=== PATIENT | female | born 1970 | race Caucasian/White ===

== ENCOUNTER 2018-04-27 15:34 | Emergency (ER) | payer OTHER ==
[2018-04-27 15:43] VITALS: BP 133/79
--- NOTE | 2018-04-27 15:47 | EDM.PDOC ---
ED HPI GENERAL MEDICAL PROBLEM - General Stated Complaint: leg pain [id number] Time Seen by Provider: 04/27/18 15:47 Source of Information: Reports: Patient, RN, RN Notes Reviewed History Limitations: Reports: No Limitations - History of Present Illness INITIAL COMMENTS - FREE TEXT/NARRATIVE: Pt to ER with c/o pain to the right great toe. Patient states she was doing yoga when she dropped her foot and hit the floor, injuring her toe. Patient states this happened a few hours ago. Patient states last year she had a screw placed in the right first metatarsal and she is concerned the hardware may be damaged. Onset: Today, Sudden Right Feet Pain Score (Numeric/FACES): 6 - Related Data Allergies Allergy/AdvReac Type Severity Reaction Status Date / Time No Known Allergies Allergy Verified 11/24/14 08:28 Home Meds: Home Meds Amoxicillin [Amoxil] 250 mg pe PO DAILY 11/24/14 [History] Cholecalciferol (Vitamin D3) [Vitamin D3] 2,000 unit PO DAILY 11/24/14 [History] Ciprofloxacin HCl [Cipro] 250 mg PO DAILY 11/24/14 [History] Multivitamin [Xbb-Fkdfsp-Oqnif] 1 tab PO DAILY 11/24/14 [History] Tacrolimus [Prograf] 1 mg PO BID 11/24/14 [History] metroNIDAZOLE [Metronidazole] 250 mg PO TID 11/24/14 [History] Review of Systems - Review of Systems Review Of Systems: ROS reveals no pertinent complaints other than HPI. ED EXAM, GENERAL - Physical Exam Exam: See Below Exam Limited By: No Limitations General Appearance: Alert, WD/WN, Mild Distress Eye Exam: Bilateral Eye: EOMI, Normal Inspection Ears: Normal External Exam, Hearing Grossly Normal Nose: Normal Inspection Throat/Mouth: Normal Inspection, Normal Voice, No Airway Compromise Head: Atraumatic, Normocephalic Neck: Normal Inspection, Supple, Non-Tender, Full Range of Motion Respiratory/Chest: No Respiratory Distress, Lungs Clear, Normal Breath Sounds, No Accessory Muscle Use, Chest Non-Tender Cardiovascular: Normal Peripheral Pulses, Regular Rate, Rhythm, No Edema, No Gallop, No JVD, No Murmur, No Rub Peripheral Pulses: 2+: Dorsalis Pedis (L), Dorsalis Pedis (R) GI/Abdominal: Normal Bowel Sounds, Soft, Non-Tender (Female) Exam: Deferred Rectal (Female) Exam: Deferred Back Exam: Normal Inspection, Full Range of Motion Extremities: Joint Swelling (right great toe), Limited Range of Motion (right great toe), Other Neurological: Alert, Oriented, Normal Cognition, No Motor/Sensory Deficits Psychiatric: Anxious Skin Exam: Warm, Dry, Intact, Normal Color, No Rash, Ecchymosis (right great toe ) Lymphatic: No Adenopathy Course - Vital Signs Last Recorded V/S: Last Vital Signs Temp 97.9 F 04/27/18 15:42 Pulse 66 04/27/18 15:42 Resp 20 04/27/18 15:42 BP 133/79 04/27/18 15:42 Pulse Ox 97 04/27/18 15:42 - Radiology Interpretation Free Text/Narrative:: Right foot xray: IMPRESSION: No acute findings. Thank you for allowing us to participate in the care of your patient. Dictated and Authenticated by: Vanesa Figueroa MD 04/27/2018 4:31 PM Central Time ([place] & [place]) See rad report Departure - Departure Time of Disposition: 16:44 Disposition: Home, Self-Care 01 Condition: Fair Clinical Impression: Sprain of toe, great, right Qualifiers: Encounter type: initial encounter Qualified Code(s): S93.501A - Unspecified sprain of right great toe, initial encounter - Discharge Information *PRESCRIPTION DRUG MONITORING PROGRAM REVIEWED*: No *COPY OF PRESCRIPTION DRUG MONITORING REPORT IN PATIENT PAUL: No Instructions: Muscle Strain, [id number] Referrals: PCP,None [Primary Care Provider] - Forms: ED Department Discharge Additional Instructions: May use Tylenol and/or ibuprofen if tolerated, as directed for pain Ice the area as tolerated Rest and elevate the foot as tolerated Follow up with your primary care facility if no improvement
== END 2018-04-27 17:01 | disposition home or self-care (01) ==
LOC: DL.ED 15:34
DX: S93.501A Unspecified sprain of right great toe, initial encounter (principal); Z79.899 Other long term (current) drug therapy; X50.0XXA Overexertion from strenuous movement or load, initial encounter; Y93.42 Activity, yoga
CPT/HCPCS: 73620-RT; 99283

== ENCOUNTER 2020-04-17 11:55 | Emergency (ER) | payer OTHER ==
[2020-04-17] MEDS ORDERED: Sodium Chloride 0.9% 10 ML Syringe FLUSH PRN (12:19)
[2020-04-17] MEDS ORDERED: Sodium Chloride 0.9% 1,000 ML IV ONE ×2 (12:19→13:13)
[2020-04-17 12:27] VITALS: BP 126/82; PULSE 102
--- NOTE | 2020-04-17 12:30 | EDM.PDOC ---
ED HPI GENERAL MEDICAL PROBLEM - General Chief Complaint: General Stated Complaint: [id number] DEHYDRATION Time Seen by Provider: 04/17/20 12:15 Source of Information: Reports: Patient, Old Records, RN, RN Notes Reviewed History Limitations: Reports: No Limitations - History of Present Illness INITIAL COMMENTS - FREE TEXT/NARRATIVE: Pt presents to ER from home by POV with c/o dizziness and feeling dehydrated. She was at [facility] all last week for f/u and annual exam for being s/p liver transplant. She reports not drinking enough water while at [place] and during travel. She has had similar symptoms in the past with dehydration. Denies syncope, headache, chest pain, palpitations, N/V/D, or dysuria. Duration: Day(s): (3) Location: Reports: Generalized Quality: Reports: Other (Denies pain) Severity: Moderate Improves with: Reports: None Worsens with: Reports: Other (Activity) Associated Symptoms: Reports: No Other Symptoms - Related Data Allergies Allergy/AdvReac Type Severity Reaction Status Date / Time No Known Allergies Allergy Verified 04/17/20 12:09 Home Meds: Home Meds Cholecalciferol (Vitamin D3) [Vitamin D3] 2,000 unit PO DAILY 11/24/14 [History] Ciprofloxacin HCl [Cipro] 250 mg PO DAILY 11/24/14 [History] Multivitamin [Buz-Paxtqx-Dporm] 1 tab PO DAILY 11/24/14 [History] Tacrolimus [Prograf] 4 mg PO BID 11/24/14 [History] metroNIDAZOLE [Metronidazole] 250 mg PO TID 11/24/14 [History] Past Medical History HEENT History: Reports: Impaired Vision Immunologic History: Reports: Immunosuppression, Solid Organ Transplant - Past Surgical History HEENT Surgical History: Reports: Tonsillectomy GI Surgical History: Reports: Cholecystectomy, Colon, Other (See Below) Other GI Surgeries/Procedures: livertransplant Social & Family History - Family History Family Medical History: Noncontributory - Caffeine Use Caffeine Use: Reports: Soda - Living Situation & Occupation Living situation: Reports: with Family ED ROS GENERAL - Review of Systems Review Of Systems: Comprehensive ROS is negative, except as noted in HPI. ED EXAM, DIZZINESS - Physical Exam Exam: See Below Exam Limited By: No Limitations General Appearance: Alert, WD/WN, No Apparent Distress Eye Exam: Bilateral Eye: Normal Inspection Nose: Normal Inspection Throat/Mouth: Normal Inspection, Normal Lips, Normal Voice, No Airway Compromise Head Exam: Atraumatic, Normocephalic Neck: Normal Inspection Respiratory/Chest: No Respiratory Distress, Lungs Clear, Normal Breath Sounds, No Accessory Muscle Use, Chest Non-Tender Cardiovascular: Regular Rate, Rhythm, No Edema, No Gallop, No JVD, No Murmur, No Rub GI/Abdominal: Normal Bowel Sounds, Soft, Non-Tender Neurological: Alert, No Motor/Sensory Deficits, Oriented x 3 Psychiatric: Normal Affect, Normal Mood Skin Exam: Warm, Dry, Intact, Normal Color, No Rash Course - Vital Signs Last Recorded V/S: Last Vital Signs Temp 97.2 F 04/17/20 12:24 Pulse 102 H 04/17/20 12:24 Resp 18 04/17/20 12:24 BP 126/82 04/17/20 12:24 Pulse Ox 100 04/17/20 12:24 Orthostatic Blood Pressure [ 118/69 Standing] Orthostatic Blood Pressure [ 115/85 Sitting] Orthostatic Blood Pressure [ 119/75 Supine] Not orthostatic. - Orders/Labs/Meds Orders: Active Orders 24 hr Category Date Time Status Orthostatic Vital Signs [RC] ASDIRECTED Care 04/17/20 12:09 Active Peripheral IV Care [RC] . DIRECTED Care 04/17/20 12:19 Active Peripheral IV Insertion Adult [OM.PC] Stat Oth 04/17/20 12:19 Ordered Labs: Laboratory Tests 04/17/20 04/17/20 04/17/20 Range/Units 12:20 12:34 12:34 WBC 8.2 (5.0-10.0) 10^3/uL RBC 4.50 (4.2-5.4) 10^6/uL Hgb 14.5 D (12.0-16.0) g/dL Hct 43.6 (37.0-47.0) % MCV 96.9 (80-100) fL MCH 32.2 (27.0-34.0) pg MCHC 33.3 (33.0-35.0) g/dL Plt Count 245 (150-450) 10^3/uL Neut % (Auto) 51.0 (42.2-75.2) % Lymph % (Auto) 35.3 (20.5-50.1) % [place] % (Auto) 11.2 H (2-8) % Eos % (Auto) 2.1 (1.0-3.0) % Baso % (Auto) 0.4 (0.0-1.0) % Sodium 133 L (136-145) mmol/L Potassium 4.2 (3.5-5.1) mmol/L Chloride 100 (98-107) mmol/L Carbon Dioxide 25 (21-32) mmol/L Anion Gap 12.2 (7-13) mEq/L BUN 17 (7-18) mg/dL Creatinine 1.34 H (0.55-1.02) mg/dL Est Cr Clr Drug Dosing 45.97 mL/min Estimated GFR (MDRD) 42 BUN/Creatinine Ratio 12.7 (No establ ref range) Glucose 91 (74-99) mg/dL Calcium 9.4 (8.5-10.1) mg/dL Total Bilirubin 0.5 (0.2-1.0) mg/dL AST 18 (15-37) U/L ALT 30 (14-59) U/L Alkaline Phosphatase 116 (46-116) U/L Total Protein 8.0 (6.4-8.2) g/dL Albumin 3.7 (3.4-5.0) g/dL Globulin 4.3 Albumin/Globulin Ratio 0.9 Urine Color Yellow (YELLOW) Urine Appearance Clear (CLEAR) Urine pH 5.5 (5.0-9.0) Ur Specific [place] <= 1.005 (1.005-1.030) Urine Protein Negative (NEGATIVE) Urine Glucose (UA) Negative (NEGATIVE) Urine Ketones Negative (NEGATIVE) Urine Occult Blood Negative (NEGATIVE) Urine Nitrite Negative (NEGATIVE) Urine Bilirubin Negative (NEGATIVE) Urine Urobilinogen 0.2 (0.2-1.0) mg/dL Ur Leukocyte Esterase Negative (NEGATIVE) Meds: Medications Discontinued Medications Generic Name Dose Route Start Last Admin Trade Name Freq PRN Reason Stop Dose Admin Sodium Chloride 1,000 mls @ 999 mls/hr 04/17/20 12:19 04/17/20 12:39 Normal Saline IV 04/17/20 13:19 999 mls/hr .BOLUS ONE Administration Sodium Chloride 1,000 mls @ 999 mls/hr 04/17/20 13:13 08/08/20 13:39 Normal Saline IV 04/17/20 14:13 999 mls/hr .BOLUS ONE Administration Sodium Chloride 10 ml 04/17/20 12:19 04/17/20 12:39 Saline Flush FLUSH 10 ml ASDIRECTED PRN Administration Keep Vein Open Departure - Departure Time of Disposition: 14:00 Disposition: Home, Self-Care 01 Condition: Good Clinical Impression: Dehydration, Dizziness - Discharge Information *PRESCRIPTION DRUG MONITORING PROGRAM REVIEWED*: Not Applicable *COPY OF PRESCRIPTION DRUG MONITORING REPORT IN PATIENT PAUL: Not Applicable Instructions: Dehydration, Adult, [id number]-[id number], Dizziness, Prxm-[id number] Forms: ED Department Discharge Additional Instructions: Follow up in clinic this week if not completely improved. Sepsis Event Note (ED) - Focused Exam Vital Signs: Vital Signs Temp Pulse Resp BP Pulse Ox 04/17/20 12:24 97.2 F 102 H 18 126/82 100 - My Orders Last 24 Hours: My Active Orders 04/17/20 12:09 Orthostatic Vital Signs [RC] ASDIRECTED 04/17/20 12:19 Peripheral IV Care [RC] . DIRECTED Peripheral IV Insertion Adult [OM.PC] Stat - Assessment/Plan Last 24 Hours: My Active Orders 04/17/20 12:09 Orthostatic Vital Signs [RC] ASDIRECTED 04/17/20 12:19 Peripheral IV Care [RC] . DIRECTED Peripheral IV Insertion Adult [OM.PC] Stat
[2020-04-17 13:00] LABS: ANION GAP 12.2 mEq/L (7-13)
== END 2020-04-17 14:46 | disposition home or self-care (01) ==
LOC: DL.ED 11:55
DX: E86.0 Dehydration (principal); Z94.4 Liver transplant status; Z79.899 Other long term (current) drug therapy
CPT/HCPCS: 36415; 80053; 81003; 85025; 96360; 96361; 99284; J7030; 99283

== ENCOUNTER 2021-04-01 14:56 | Emergency (ER) | payer OTHER | END 2021-04-01 17:19 | disposition left against medical advice (07) | LOC: DL.ED 14:56 | DX: Z53.21 Procedure and treatment not carried out due to patient leaving prior to being seen by health care provider (principal) ==

== ENCOUNTER 2021-04-02 11:32 | Emergency (ER) | payer OTHER ==
[2021-04-02 11:50] VITALS: BP 118/76; PULSE 65
[2021-04-02 12:48] LABS: ANION GAP 13.8 mEq/L (7-13)
[2021-04-02] MEDS ORDERED: Sodium Chloride 0.9% 1,000 ML IV ONE (12:54)
[2021-04-02] MEDS ORDERED: Magnesium Sulfate/Water 2 GM in Premix Bag 1 BAG IV ONE (12:54)
--- NOTE | 2021-04-02 12:59 | EDM.PDOC ---
ED HPI GENERAL MEDICAL PROBLEM - General Chief Complaint: General Stated Complaint: [id number] DEHYDRATION Time Seen by Provider: 04/02/21 12:05 Source of Information: Reports: Patient History Limitations: Reports: No Limitations - History of Present Illness INITIAL COMMENTS - FREE TEXT/NARRATIVE: This 51 yo female patient reports to the ED due to intermittent episodes of dizziness. The patient reports she has noticed symptoms throughout the past 3-4 days. 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 The patient reports she has had numerous bouts of dehydration over the past years with similar symptoms. Onset: Gradual Duration: Day(s): Location: Reports: Other Quality: Reports: Other Severity: Mild Improves with: Reports: None Worsens with: Reports: None Context: Reports: Other Associated Symptoms: Reports: No Other Symptoms - Related Data Allergies Allergy/AdvReac Type Severity Reaction Status Date / Time No Known Allergies Allergy Verified 04/02/21 11:50 Home Meds: Home Meds Cholecalciferol (Vitamin D3) [Vitamin D3] 2,000 unit PO DAILY 11/24/14 [History] Ciprofloxacin HCl [Cipro] 250 mg PO DAILY 11/24/14 [History] Multivitamin with Folic Acid [Multiple Vitamin Tablet] 1 tab PO DAILY 11/24/14 [History] Tacrolimus [Prograf] 4 mg PO BID 11/24/14 [History] metroNIDAZOLE [Metronidazole] 250 mg PO TID 11/24/14 [History] Past Medical History HEENT History: Reports: Impaired Vision Other HEENT History: wears glasses Cardiovascular History: Reports: None Respiratory History: Reports: None Genitourinary History: Reports: Other (See Below) Other Genitourinary History: "poor renal function due to liver transplant [employer]IED [employer] History: Reports: None Musculoskeletal History: Reports: None Neurological History: Reports: None Psychiatric History: Reports: None Endocrine/Metabolic History: Reports: Obesity/BMI 30+ Hematologic History: Reports: None Immunologic History: Reports: Immunosuppression, Solid Organ Transplant Oncologic (Cancer) History: Reports: None Dermatologic History: Reports: None - Infectious Disease History Infectious Disease History: Reports: Chicken Pox - Past Surgical History Head Surgeries/Procedures: Reports: None HEENT Surgical History: Reports: Tonsillectomy GI Surgical History: Reports: Cholecystectomy, Colon, Other (See Below) Other GI Surgeries/Procedures: livertransplant Social & Family History - Family History Family Medical History: No Pertinent Family History - Tobacco Use Tobacco Use Status *Q: Never Tobacco User Second Hand Smoke Exposure: No - Caffeine Use Caffeine Use: Reports: Soda - Recreational Drug Use Recreational Drug Use: No - Living Situation & Occupation Living situation: Reports: with Family ED ROS GENERAL - Review of Systems Review Of Systems: Comprehensive ROS is negative, except as noted in HPI. ED EXAM, GENERAL - Physical Exam Exam: See Below Exam Limited By: No Limitations General Appearance: Alert, WD/WN, No Apparent Distress Eye Exam: Bilateral Eye: EOMI, Normal Inspection, PERRL Ears: Normal External Exam, Normal Canal, Hearing Grossly Normal, Normal TMs Nose: Normal Inspection, Normal Mucosa, No Blood Throat/Mouth: Normal Inspection, Normal Lips, Normal Teeth, Normal Gums, Normal Oropharynx, Normal Voice, No Airway Compromise Head: Atraumatic, Normocephalic Neck: Normal Inspection, Supple, Non-Tender, Full Range of Motion Respiratory/Chest: No Respiratory Distress, Lungs Clear, Normal Breath Sounds, No Accessory Muscle Use, Chest Non-Tender Cardiovascular: Normal Peripheral Pulses, Regular Rate, Rhythm, No Edema, No Gallop, No JVD, No Murmur, No Rub GI/Abdominal: Normal Bowel Sounds, Soft, Non-Tender, No Organomegaly, No Disten tion, No Abnormal Bruit, No Mass (Female) Exam: Deferred Rectal (Female) Exam: Deferred Back Exam: Normal Inspection, Full Range of Motion, NT Extremities: Normal Inspection, Normal Range of Motion, Non-Tender, Normal Capillary Refill, No Pedal Edema Neurological: Alert, Oriented, CN II-XII Intact, Normal Cognition, Normal Gait, Normal Reflexes, No Motor/Sensory Deficits Psychiatric: Normal Affect, Normal Mood Skin Exam: Warm, Dry, Intact, Normal Color, No Rash Lymphatic: No Adenopathy Course - Vital Signs Last Recorded V/S: Last Vital Signs Temp 97.9 F 04/02/21 11:44 Pulse 65 04/02/21 11:44 Resp 16 04/02/21 11:44 BP 118/76 04/02/21 11:44 Pulse Ox 98 04/02/21 11:44 Orthostatic Blood Pressure [ 115/68 Supine] Orthostatic Blood Pressure [ 111/73 Standing] Orthostatic Blood Pressure [ 115/71 Sitting] - Orders/Labs/Meds Labs: Laboratory Tests 04/02/21 04/02/21 04/02/21 Range/Units 12:23 12:23 12:23 WBC 10.1 H (5.0-10.0) 10^3/uL RBC 4.23 (4.2-5.4) 10^6/uL Hgb 13.6 (12.0-16.0) g/dL Hct 41.8 (37.0-47.0) % MCV 98.8 (80-100) fL MCH 32.2 (27.0-34.0) pg MCHC 32.5 L (33.0-35.0) g/dL Plt Count 276 (150-450) 10^3/uL Neut % (Auto) 57.7 (42.2-75.2) % Lymph % (Auto) 28.0 (20.5-50.1) % [place] % (Auto) 11.3 H (2-8) % Eos % (Auto) 2.6 (1.0-3.0) % Baso % (Auto) 0.4 (0.0-1.0) % Sodium 142 (136-145) mmol/L Potassium 4.8 (3.5-5.1) mmol/L Chloride 104 (98-107) mmol/L Carbon Dioxide 29 (21-32) mmol/L Anion Gap 13.8 H (7-13) mEq/L BUN 14 (7-18) mg/dL Creatinine 1.23 H (0.55-1.02) mg/dL Est Cr Clr Drug Dosing 49.52 mL/min Estimated GFR (MDRD) 46 BUN/Creatinine Ratio 11.4 (No establ ref range) Glucose 95 (70-99) mg/dL Calcium 9.8 (8.5-10.1) mg/dL Magnesium 1.4 L (1.8-2.4) mg/dL Total Bilirubin 0.4 (0.2-1.0) mg/dL AST 16 (15-37) U/L ALT 22 (14-59) U/L Alkaline Phosphatase 100 (46-116) U/L Total Protein 7.5 (6.4-8.2) g/dL Albumin 3.3 L (3.4-5.0) g/dL Globulin 4.2 Albumin/Globulin Ratio 0.79 Meds: Medications Discontinued Medications Generic Name Dose Route Start Last Admin Trade Name Marium PRN Reason Stop Dose Admin Magnesium Sulfate 2 gm/ Premix 50 mls @ 25 mls/hr 04/02/21 12:54 04/02/21 15:43 IV 04/02/21 14:53 Infused ONETIME ONE Infusion Sodium Chloride 1,000 mls @ 999 mls/hr 04/02/21 12:54 04/02/21 15:46 Normal Saline IV 04/02/21 13:54 Infused .BOLUS ONE Infusion Departure - Departure Time of Disposition: 15:47 Disposition: Home, Self-Care 01 Condition: Fair Clinical Impression: Hypomagnesemia, Dehydration - Discharge Information *PRESCRIPTION DRUG MONITORING PROGRAM REVIEWED*: Not Applicable *COPY OF PRESCRIPTION DRUG MONITORING REPORT IN PATIENT PAUL: Not Applicable Instructions: Hypomagnesemia, Dehydration, Adult, Aboq-[id number]-[id number] Forms: ED Department Discharge Care Plan Goals: The patient was advised of the examination and lab results during the visit. The patient was given IV Magnesium and IV fluids during the visit. The patient was encouraged to continue to monitor for any additional symptoms or concerns. If the patient has any additional symptoms or further concerns, the patient should either return to the emergency department or visit her primary care facility. Sepsis Event Note (ED) - Evaluation Sepsis Screening Result: No Definite Risk - Focused Exam Vital Signs: Vital Signs Temp Pulse Resp BP Pulse Ox 04/02/21 11:44 97.9 F 65 16 118/76 98
== END 2021-04-02 16:05 | disposition home or self-care (01) ==
LOC: DL.ED 11:32
DX: E86.0 Dehydration (principal); E83.42 Hypomagnesemia; E66.9 Obesity, unspecified; Z68.37 Body mass index [BMI] 37.0-37.9, adult; Z94.4 Liver transplant status
CPT/HCPCS: 36415; 80053; 83735; 85025; 96365; 96366; 99283; 99284; J3475; J7030

== ENCOUNTER 2022-01-12 12:18 | Emergency (ER) | payer OTHER ==
[~2022-01-12 12:18] MED LIST: Iopamidol 612 MG/ML 100 ML Bottle IVPUSH ONE; Magnesium Sulfate/Water 2 GM in Premix Bag 1 BAG IV ONE; Sodium Chloride 0.9% 1,000 ML IV ONE
[2022-01-12 12:42] VITALS: BP 112/63; PULSE 92
[2022-01-12] MEDS ORDERED: cefTRIAXone 1 GM in Sodium Chloride 0.9% 50 ML IV ONE (13:43)
[2022-01-12] MEDS ORDERED: Acetaminophen 500 MG Tab PO ONE (13:47)
[2022-01-12] MEDS ORDERED: Magnesium Sulfate/Water 2 GM in Premix Bag 1 BAG IV ONE (14:07)
== END 2022-01-12 14:51 ==
LOC: DL.ED 12:18
DX: A41.9 Sepsis, unspecified organism (principal); N17.9 Acute kidney failure, unspecified; J18.9 Pneumonia, unspecified organism; K56.7 Ileus, unspecified; E83.42 Hypomagnesemia; R19.7 Diarrhea, unspecified; E66.9 Obesity, unspecified; Z68.37 Body mass index [BMI] 37.0-37.9, adult; Z90.49 Acquired absence of other specified parts of digestive tract; Z79.899 Other long term (current) drug therapy; Z20.822 Contact with and (suspected) exposure to COVID-19
CPT/HCPCS: 74177; 93005; 96365; 96366; 96367; 99285-25; A9270-GY; J0696; J3475; J7030; Q9967; U0002

== ENCOUNTER 2022-08-30 20:08 | Inpatient (IN) | payer OTHER ==
[2022-08-30] MEDS ORDERED: Ondansetron 4 MG/2 ML SDV IVPUSH ONE (21:04)
[2022-08-30] MEDS ORDERED: HYDROmorphone 0.5 MG/0.5 ML Syringe IVPUSH ONE (21:04)
[2022-08-30] MEDS ORDERED: Sodium Chloride 0.9% 1,000 ML IV ONE (21:05)
[2022-08-30] MEDS ORDERED: Acetaminophen 500 MG Tab PO ONE (21:05)
[2022-08-30 21:15] LABS: ANION GAP 15.7 mEq/L (7-13)
[2022-08-30 21:40] LABS: CORONAVIRUS COVID-19 NAA NEGATIVE (NEGATIVE); RESPIRATORY SYNCYTIAL VIR NAA NEGATIVE (NEGATIVE)
[2022-08-30] MEDS ORDERED: Piperacillin/Tazobactam 2.25 GM in Sodium Chloride 0.9% 50 ML IV ONE (23:03)
[2022-08-30] MEDS ORDERED: Acetaminophen 325 MG Tab PO PRN (23:56)
[2022-08-30] MEDS ORDERED: Acetaminophen/HYDROcodone 325-5 MG Tab PO PRN (23:56)
[2022-08-30] MEDS ORDERED: Sodium Chloride 0.9% 10 ML Syringe FLUSH PRN (23:56)
[2022-08-30] MEDS ORDERED: HYDROmorphone 0.5 MG/0.5 ML Syringe IVPUSH PRN (23:56)
[2022-08-30] MEDS ORDERED: Albuterol/Ipratropium 3.0-0.5 MG/3 ML Neb Soln NEB PRN (23:56)
[2022-08-30] MEDS ORDERED: Ondansetron 4 MG/2 ML SDV IVPUSH PRN (23:56)
[2022-08-30] MEDS ORDERED: Magnesium Sulfate/Water 2 GM in Premix Bag 1 BAG IV ONE (23:59)
[2022-08-31] MEDS ORDERED: Dextrose 5%-0.9% NaCl 1,000 ML IV SCH
[2022-08-31] MEDS ORDERED: Metoclopramide 10 MG/2 ML SDV IVPUSH PRN ×2 (00:01→12:15)
[2022-08-31] MEDS ORDERED: Ciprofloxacin in D5W 200 MG in Premix Bag 1 BAG IV SCH ×2 (01:15)
[2022-08-31 07:02] LABS: ANION GAP 11.9 mEq/L (7-13)
[2022-08-31] MEDS ORDERED: Saccharomyces Boulardii (Probiotic) 250 MG Cap PO SCH (09:00)
[2022-08-31] MEDS ORDERED: Non-Formulary Medication 1 Each (Tacrolimus 1 MG Capsule) PO SCH (09:00)
[2022-08-31] MEDS: Sodium Chloride 0.9% 10 ML Syringe FLUSH SCH ×2 (09:32→20:00)
[2022-08-31] MEDS ORDERED: traMADol 50 MG Tab PO PRN (12:23)
[2022-08-31] MEDS: Enoxaparin 30 MG/0.3 ML Syringe SUBCUT SCH (13:37)
[2022-09-01] MEDS: Enoxaparin 30 MG/0.3 ML Syringe SUBCUT SCH (10:23)
[2022-09-01] MEDS: Sodium Chloride 0.9% 10 ML Syringe FLUSH SCH (10:23)
[2022-09-01 13:16] VITALS: BP 104/62; PULSE 63
== END 2022-09-01 10:55 | disposition home or self-care (01) | DRG 372 ==
LOC: DL.ED 20:08 → DL.MS 23:08
PROVIDERS: ADMIT Internal Medicine; ATTEND Internal Medicine
DX: A04.72 Enterocolitis due to Clostridium difficile, not specified as recurrent (principal); D84.9 Immunodeficiency, unspecified; K91.850 Pouchitis; K56.7 Ileus, unspecified; K90.9 Intestinal malabsorption, unspecified; N17.9 Acute kidney failure, unspecified; Z94.4 Liver transplant status; K21.9 Gastro-esophageal reflux disease without esophagitis; N18.30 Chronic kidney disease, stage 3 unspecified; E55.9 Vitamin D deficiency, unspecified; Z20.822 Contact with and (suspected) exposure to COVID-19; E66.9 Obesity, unspecified; H54.7 Unspecified visual loss; R73.9 Hyperglycemia, unspecified; F43.9 Reaction to severe stress, unspecified; E83.42 Hypomagnesemia; R74.8 Abnormal levels of other serum enzymes; Z90.49 Acquired absence of other specified parts of digestive tract; Z79.899 Other long term (current) drug therapy; Z68.35 Body mass index [BMI] 35.0-35.9, adult
CPT/HCPCS: 0241U; 36415; 74176; 80048; 80053; 81001; 82150; 82607; 82746; 83605; 83690; 83735; 84145; 85025; 86140; 87040; 87493; 96361; 96365; 96375; 99285-25; A9270-GY; J0744; J1170; J1650; J2405; J2543; J3475; J3490; J7030; J7042

== ENCOUNTER 2024-05-02 07:21 | Inpatient (IN) | payer OTHER ==
[2024-05-02] MEDS ORDERED: Naloxone 2 MG/2 ML Syringe IVPUSH PRN (07:32)
[2024-05-02] MEDS: Sodium Chloride 0.9% 1,000 ML IV SCH ×2 (07:46→09:30)
[2024-05-02] MEDS: fentaNYL 100 MCG/2 ML SDV IVPUSH ONE (07:46)
[2024-05-02] MEDS: Sodium Chloride 0.9% 10 ML Syringe FLUSH PRN (07:47)
[2024-05-02 07:54] LABS: EOSINOPHILS PERCENT AUTO 0.3 % (1.0-3.0); HEMATOCRIT 39.6 % (37.0-47.0); HEMOGLOBIN 12.7 g/dL (12.0-16.0); MEAN CORPUSCULAR HEMOGLOBIN 30.6 pg (27.0-34.0); MEAN CORPUSCULAR HGB CONC 32.1 g/dL (33.0-35.0); MEAN CORPUSCULAR VOLUME 95.4 fL (80-100); MONOCYTES PERCENT AUTO 5.7 % (2-8); PLATELET COUNT,PLT 430 10^3/uL (150-450); RED BLOOD CELL COUNT 4.15 10^6/uL (4.2-5.4); WHITE BLOOD CELL COUNT,WBC 20.8 10^3/uL (5.0-10.0)
[2024-05-02 08:12] LABS: ALBUMIN 3.2 g/dL (3.4-5.0); ANION GAP 11.2 mEq/L (7-13); BILIRUBIN TOTAL 0.6 mg/dL (0.2-1.0); BUN/CREATININE RATIO 8.8 (No establ ref range); C-REACTIVE PROTEIN 6.03 ng/dL (<=0.50); CALCIUM 9.7 mg/dL (8.5-10.1); CREATININE 1.36 mg/dL (0.55-1.02); EST CRCL DRUG DOSING (CG) 43.24 mL/min; MAGNESIUM 1.5 mg/dL (1.8-2.4); POTASSIUM,K 4.2 mmol/L (3.5-5.1); PROTEIN TOTAL,TP 7.2 g/dL (6.4-8.2)
[2024-05-02 08:16] LABS: INR 0.9 (0.9-1.2); PROTHROMBIN TIME 9.3 SEC (9.0-12.0)
[2024-05-02 08:20] LABS: A/G RATIO 0.8
[2024-05-02] MEDS: Morphine 2 MG/ML SYRINGE IVPUSH ONE (08:45)
[2024-05-02] MEDS: Piperacillin/Tazobactam 4.5 GM in Sodium Chloride 0.9% 100 ML IV ONE (08:48)
[2024-05-02] MEDS: Iopamidol 612 MG/ML 100 ML Bottle IVPUSH ONE (09:12)
[2024-05-02 09:14] LABS: APPEARANCE,URINE TURBID (CLEAR); BILIRUBIN,URINE NEGATIVE (NEGATIVE); COLOR,URINE YELLOW (YELLOW); GLUCOSE,URINE NEGATIVE (NEGATIVE); KETONES,URINE TRACE (NEGATIVE); LEUKOCYTE ESTERASE,URINE SMALL (NEGATIVE); NITRITE,URINE NEGATIVE (NEGATIVE); OCCULT BLOOD,URINE NEGATIVE (NEGATIVE); PROTEIN,URINE 30 (NEGATIVE); UROBILINOGEN,URINE 0.2 mg/dL (0.2-1.0)
[2024-05-02 09:24] LABS: BACTERIA,URINE MANY /HPF (0-FEW/HPF); EPITHELIAL CELLS,URINE MODERATE /HPF (NOT SEEN); MUCUS,URINE FEW /LPF (NOT SEEN); RBC,URINE 0-5 /HPF (0-5)
[2024-05-02 09:25] LABS: HYALINE CASTS,URINE FEW
[2024-05-02] MEDS: Magnesium Sulfate/Water 2 GM in Premix Bag 1 BAG IV ONE (09:33)
[2024-05-02] MEDS: Vancomycin 125 MG Cap PO ONE (11:30)
[2024-05-02] MEDS: Ketorolac 30 MG/ML SDV IVPUSH PRN (13:27)
[2024-05-02] MEDS: Ferrous Sulfate 325 MG Tab PO SCH (13:27)
[2024-05-02] MEDS: Multivitamin Tab PO SCH (13:27)
[2024-05-02] MEDS: Morphine 2 MG/ML SYRINGE IVPUSH PRN (17:40)
[2024-05-02] MEDS: TACROLIMUS PO SCH (22:08)
[2024-05-03] MEDS: Menthol/Zinc Oxide Ointment 113 GM Tube TOP PRN (01:05)
[2024-05-03] MEDS: Docusate Sodium 100 MG Cap PO SCH (01:05)
[2024-05-03 06:17] LABS: HEMATOCRIT 33.4 % (37.0-47.0); HEMOGLOBIN 10.7 g/dL (12.0-16.0); MEAN CORPUSCULAR VOLUME 96.8 fL (80-100); RED BLOOD CELL COUNT 3.45 10^6/uL (4.2-5.4); WHITE BLOOD CELL COUNT,WBC 5.5 10^3/uL (5.0-10.0)
[2024-05-03 07:19] LABS: ANION GAP 10.2 mEq/L (7-13); CREATININE 1.28 mg/dL (0.55-1.02); EST CRCL DRUG DOSING (CG) 45.94 mL/min; POTASSIUM,K 4.2 mmol/L (3.5-5.1)
[2024-05-03] MEDS: Enoxaparin 40 MG/0.4 ML Syringe SUBCUT SCH (08:27)
[2024-05-03] MEDS ORDERED: Bisacodyl 10 MG Supp RECTAL PRN (13:34)
[2024-05-03] MEDS: Piperacillin/Tazobactam 4.5 GM in Sodium Chloride 0.9% 100 ML IV SCH (14:11)
[2024-05-03] MEDS: Piperacillin/Tazobactam 3.375 GM in Sodium Chloride 0.9% 100 ML IV SCH (15:45)
[2024-05-03] MEDS: Dextrose 5%-0.9% NaCl 1,000 ML IV SCH (18:04)
[2024-05-03] MEDS: Ondansetron 4 MG/2 ML SDV IVPUSH PRN (20:13)
[2024-05-04] MEDS: Patient's Own Medication 1 Each PO SCH (07:17)
[2024-05-05 16:50] VITALS: BP 118/74; PULSE 62
== END 2024-05-05 17:30 | disposition home or self-care (01) | DRG 392 ==
LOC: DL.ED 07:21 → DL.MS 10:23 → OBSVTOIN 05-04 08:12
PROVIDERS: ADMIT Internal Medicine; ATTEND Internal Medicine
DX: K52.9 Noninfective gastroenteritis and colitis, unspecified (principal); D84.821 Immunodeficiency due to drugs; K51.90 Ulcerative colitis, unspecified, without complications; K56.7 Ileus, unspecified; Z94.4 Liver transplant status; N18.9 Chronic kidney disease, unspecified; H54.7 Unspecified visual loss; E66.9 Obesity, unspecified; E83.42 Hypomagnesemia; N18.31 Chronic kidney disease, stage 3a; Z98.890 Other specified postprocedural states; Z79.2 Long term (current) use of antibiotics; Z79.899 Other long term (current) drug therapy; Z68.30 Body mass index [BMI] 30.0-30.9, adult; Z90.89 Acquired absence of other organs; Z90.49 Acquired absence of other specified parts of digestive tract
CPT/HCPCS: 36415; 74176; 74177; 80048; 80053; 81001; 83690; 83735; 84484; 85025; 85027; 85610; 86140; 87040; 87045; 87046; 87086; 87088; 87186; 87493; 87899; 96361; 96365; 96366; 96367; 96375; 96376; 99223; 99232; 99233; 99239; 99285; 99285-25; A9270-GY; G0378; J1650; J1885; J2270; J2405; J2543; J3010; J3475; J3490; J7030; J7042; Q9967